=== PATIENT | female | born 1985 | race Caucasian/White ===

== ENCOUNTER 2023-05-28 18:01 | Emergency (ER) | payer BC, SELFPAY ==
[2023-05-28 18:05] VITALS: BP 121/78; PULSE 77; RESP 16; TEMP 36.6; O2SAT 100; BMI 26.1
--- NOTE | 2023-05-28 18:21 | ED_ITS ---
HPI - Nausea/Vomiting/Diarrhea General Chief complaint: Abdominal Pain Stated complaint: Nausea/Vomiting, Diarrhea Time Seen by Provider: 05/28/23 18:06 Mode of arrival: walk-in Limitations: no limitations History of Present Illness HPI Narrative: 37-year-old female presents for nausea vomiting diarrhea of three days duration. No hematemesis or hematochezia. She's feeling weak and thinks she might be dehydrated. No fever and she hasn't had any ill contacts. She took a home Covid test that was negative. Related Data Home Medications Medication Instructions Recorded Confirmed fluoxetine 10 mg capsule 10 mg PO DAILY 05/28/23 05/28/23 Allergies Allergy/AdvReac Type Severity Reaction Status Date / Time morphine Allergy Unknown Verified 05/28/23 18:05 Review of Systems ROS Narrative A ten point review of systems is negative except as noted above. Exam Narrative Exam Narrative: Nurses note and vital signs reviewed and patient is not hypoxic. General: The patient appears well and in no apparent distress. Patient is resting comfortably on cart. Skin: Warm, dry, no pallor noted. There is no rash noted. Head: Normocephalic, atraumatic Eye: Normal conjunctiva, no drainage Ears, Nose, Mouth, and Throat: Nares patent. Cardiovascular: Regular Rate and Rhythm Respiratory: Patient is in no distress, no accessory muscle use, lungs are clear to auscultation, no wheezing, rales or rhonchi Back: non-tender GI: no tenderness to palpation, no masses appreciated. No rebound, guarding, or rigidity noted. Musculoskeletal: The patient has no evidence of calf tenderness, no pitting edema, symmetrical pulses noted bilaterally Neurological: A&O, normal speech Psychiatric: Cooperative Constitutional Vital Signs, click to edit/add: Last Vital Signs Temp 97.9 F 05/28/23 18:05 Pulse 77 05/28/23 18:05 Resp 16 05/28/23 18:05 BP 121/78 05/28/23 18:05 Pulse Ox 100 05/28/23 18:05 O2 Del Method Room Air 05/28/23 18:05 Course Vital Signs Vital signs: Vital Signs Temperature 97.9 F 05/28/23 18:05 Pulse Rate 77 05/28/23 18:05 Respiratory Rate 16 05/28/23 18:05 Blood Pressure 121/78 05/28/23 18:05 Pulse Oximetry 100 09/28/23 18:05 Oxygen Delivery Method Room Air 05/28/23 18:05 Temperature 97.9 F 05/28/23 18:05 Pulse Rate 77 05/28/23 18:05 Respiratory Rate 16 05/28/23 18:05 Blood Pressure 121/78 05/28/23 18:05 Pulse Oximetry 100 05/28/23 18:05 Oxygen Delivery Method Room Air 05/28/23 18:05 MDM - Nausea/Vomiting/Diarrhea MDM Narrative Medical decision making narrative: Tests are ordered as well as IV fluids and IV Zofran and the patient is signed out to Dr. Carmichael at change of shift. Lab Data Labs: Lab Results 05/28/23 Range/Units 18:26 WBC 5.2 (4.0-11.0) 10^3/uL RBC 4.13 L (4.20-5.40) 10^6/uL Hgb 12.8 (12.0-16.0) g/dL Hct 36.2 (36.0-48.0) % MCV 87.7 (81.0-99.0) fL MCH 31.0 (26.7-34.0) pg MCHC 35.4 H (29.9-35.2) g/dL RDW 11.8 (11.0-15.0) % Plt Count 161 (150-450) 10^3/uL MPV 9.9 (9.5-13.5) fL Neut % (Auto) 75.7 H (43.0-75.0) % Lymph % (Auto) 9.6 L (20.5-60.0) % [place] % (Auto) 13.3 H (1.7-12.0) % Eos % (Auto) 0.6 L (0.9-7.0) % Baso % (Auto) 0.4 (0.2-2.0) % Neut # (Auto) 3.9 (1.4-6.5) 10^3/uL Lymph # (Auto) 0.5 L (1.2-3.8) 10^3/uL [place] # (Auto) 0.7 (0.3-0.8) 10^3/uL Eos # (Auto) 0.0 (0.0-0.7) 10^3/uL Baso # (Auto) 0.0 (0.0-0.1) 10^3/uL Abs Immat Gran (auto) 0.02 (0.00-0.03) 10^3/uL Imm/Tot Granulo (auto) 0.4 (0.0-0.5) % Sodium 139 (136-145) mmol/L Potassium 3.3 L (3.5-5.1) mmol/L Chloride 101 (98-107) mmol/L Carbon Dioxide 29.9 (21.0-32.0) mmol/L Anion Gap 11.4 BUN 9.0 (7.0-18.0) mg/dL Creatinine 0.79 (0.55-1.02) mg/dL Est GFR ( Amer) >60 (>=60) Est GFR (Non-Af Amer) >60 (>=60) BUN/Creatinine Ratio 11.4 Glucose 112 H (74-106) mg/dL Calcium 8.4 L (8.5-10.1) mg/dL Discharge Plan Discharge Chief Complaint: Abdominal Pain Clinical Impression: Nausea vomiting and diarrhea Patient Disposition: Still a Patient Prescriptions / Home Meds: No Action fluoxetine 10 mg capsule 10 mg PO DAILY Referrals: ROSE MCGILL [Primary Care Provider] - 1 week
[2023-05-28] MEDS: ONDANSETRON PF 4 MG/2 ML VIAL IV (18:30)
[2023-05-28] MEDS: 0.9 % SODIUM CHLORIDE 1,000 ML 1000 ML IV (18:31)
[2023-05-28 18:37] LABS: Basophils Percent Auto 0.4 % (0.2-2.0); Eosinophils Percent Auto 0.6 % (0.9-7.0); Hematocrit 36.2 % (36.0-48.0); Hemoglobin 12.8 g/dL (12.0-16.0); Immature Granulocytes Abs Auto 0.02 10^3/uL (0.00-0.03); Immature Granulocytes Pct Auto 0.4 % (0.0-0.5); Lymphocytes Absolute Auto 0.5 10^3/uL (1.2-3.8); Lymphocytes Percent Auto 9.6 % (20.5-60.0); Mean Corpuscular HGB Conc 35.4 g/dL (29.9-35.2); Mean Corpuscular Volume 87.7 fL (81.0-99.0); Mean Platelet Volume 9.9 fL (9.5-13.5); Monocytes Absolute Auto 0.7 10^3/uL (0.3-0.8); Monocytes Percent Auto 13.3 % (1.7-12.0); Neutrophils Absolute Auto 3.9 10^3/uL (1.4-6.5); Neutrophils Percent Auto 75.7 % (43.0-75.0); Platelet Count 161 10^3/uL (150-450); Red Blood Count 4.13 10^6/uL (4.20-5.40); Red Cell Distribution Width 11.8 % (11.0-15.0); White Blood Count 5.2 10^3/uL (4.0-11.0)
[2023-05-28 18:47] LABS: Anion Gap 11.4; BUN Creatinine Ratio 11.4; Calcium 8.4 mg/dL (8.5-10.1); Carbon Dioxide 29.9 mmol/L (21.0-32.0); Chloride 101 mmol/L (98-107); Estimated GFR (African America >60 (>=60); Estimated GFR (Non-African Ame >60 (>=60); Glucose 112 mg/dL (74-106); Potassium 3.3 mmol/L (3.5-5.1); Sodium 139 mmol/L (136-145)
--- NOTE | 2023-05-28 19:40 | ED.NAVMDI1 ---
HPI - Nausea/Vomiting/Diarrhea General Chief complaint: Abdominal Pain Stated complaint: Nausea/Vomiting, Diarrhea Time Seen by Provider: 05/28/23 18:06 Mode of arrival: walk-in Limitations: no limitations History of Present Illness HPI Narrative: 37-year-old female was signed out to me at shift change pending reevaluation. She presents with nausea vomiting and diarrhea. She is medicated in emergency department and is feeling better. I reviewed her labs. She does have a mildly decreased potassium but the remainder of her labs are normal. She states that she was drinking some Powerade prior to being treated emergency Department has not had any vomiting siince then. She declines the need for anything For nausea or vomiting. She is not having any pain. She will be discharged home with a prescription for Zofran and Pepcid. Related Data Home Medications Medication Instructions Recorded Confirmed fluoxetine 10 mg capsule 10 mg PO DAILY 05/28/23 05/28/23 Allergies Allergy/AdvReac Type Severity Reaction Status Date / Time morphine Allergy Unknown Verified 05/28/23 18:05 Exam Constitutional Vital Signs, click to edit/add: Last Vital Signs Temp 97.9 F 05/28/23 18:05 Pulse 77 05/28/23 18:05 Resp 16 05/28/23 18:05 BP 121/78 05/28/23 18:05 Pulse Ox 100 05/28/23 18:05 O2 Del Method Room Air 05/28/23 18:05 Course Vital Signs Vital signs: Vital Signs Temperature 97.9 F 05/28/23 18:05 Pulse Rate 77 05/28/23 18:05 Respiratory Rate 16 05/28/23 18:05 Blood Pressure 121/78 05/28/23 18:05 Pulse Oximetry 100 05/28/23 18:05 Oxygen Delivery Method Room Air 05/28/23 18:05 Temperature 97.9 F 05/28/23 18:05 Pulse Rate 77 05/28/23 18:05 Respiratory Rate 16 05/28/23 18:05 Blood Pressure 121/78 05/28/23 18:05 Pulse Oximetry 100 05/28/23 18:05 Oxygen Delivery Method Room Air 05/28/23 18:05 MDM - Nausea/Vomiting/Diarrhea Lab Data Labs: Lab Results 05/28/23 Range/Units 18:26 WBC 5.2 (4.0-11.0) 10^3/uL RBC 4.13 L (4.20-5.40) 10^6/uL Hgb 12.8 (12.0-16.0) g/dL Hct 36.2 (36.0-48.0) % MCV 87.7 (81.0-99.0) fL MCH 31.0 (26.7-34.0) pg MCHC 35.4 H (29.9-35.2) g/dL RDW 11.8 (11.0-15.0) % Plt Count 161 (150-450) 10^3/uL MPV 9.9 (9.5-13.5) fL Neut % (Auto) 75.7 H (43.0-75.0) % Lymph % (Auto) 9.6 L (20.5-60.0) % [place] % (Auto) 13.3 H (1.7-12.0) % Eos % (Auto) 0.6 L (0.9-7.0) % Baso % (Auto) 0.4 (0.2-2.0) % Neut # (Auto) 3.9 (1.4-6.5) 10^3/uL Lymph # (Auto) 0.5 L (1.2-3.8) 10^3/uL [place] # (Auto) 0.7 (0.3-0.8) 10^3/uL Eos # (Auto) 0.0 (0.0-0.7) 10^3/uL Baso # (Auto) 0.0 (0.0-0.1) 10^3/uL Abs Immat Gran (auto) 0.02 (0.00-0.03) 10^3/uL Imm/Tot Granulo (auto) 0.4 (0.0-0.5) % Sodium 139 (136-145) mmol/L Potassium 3.3 L (3.5-5.1) mmol/L Chloride 101 (98-107) mmol/L Carbon Dioxide 29.9 (21.0-32.0) mmol/L Anion Gap 11.4 BUN 9.0 (7.0-18.0) mg/dL Creatinine 0.79 (0.55-1.02) mg/dL Est GFR ( Amer) >60 (>=60) Est GFR (Non-Af Amer) >60 (>=60) BUN/Creatinine Ratio 11.4 Glucose 112 H (74-106) mg/dL Calcium 8.4 L (8.5-10.1) mg/dL Discharge Plan Discharge Chief Complaint: Abdominal Pain Clinical Impression: Nausea vomiting and diarrhea Patient Disposition: Home, Self-Care Time of Disposition Decision: 19:43 Condition: Good Prescriptions / Home Meds: No Action fluoxetine 10 mg capsule 10 mg PO DAILY Instructions: Acute Nausea and Vomiting (ED) Stand Alone Forms: Portal Instructions Referrals: ROSE MCGILL [Primary Care Provider] - 1 week
[2023-05-28 19:44] VITALS: BP 106/67; PULSE 68; RESP 18; O2SAT 100
== END 2023-05-28 20:02 | disposition home or self-care (01) ==
PROVIDERS: Emergency Medicine; Emergency Provider Emergency Medicine; PCP Nurse Practitioner
DX: R11.2 Nausea with vomiting, unspecified (principal); R19.7 Diarrhea, unspecified
CPT/HCPCS: 36415; 80048; 84703; 85025; 96361; 96374; 99284